=== PATIENT | female | born 1990 | race African-American/Black ===

== ENCOUNTER 2019-11-07 11:24 | Day surgery (SDC) | payer OTHER ==
[~2019-11-07 11:24] MED LIST: ACETAMINOPHEN 325 MG TABLET PO PRN; CEFAZOLIN 1 GM/D5W RTU 1 GM/50 ML RTUPB IV PRN; RINGERS SOLUTION,LACTATED 1,000 ML IV PRN
[2019-11-07] MEDS ORDERED: SUCCINYLCHOLINE CHLORIDE INJ 200 MG/10 ML VIAL ONE (11:44)
[2019-11-07] MEDS ORDERED: KETOROLAC TROMETHAMINE 60 MG/2 ML SDV ONE (11:44)
[2019-11-07] MEDS ORDERED: LIDOCAINE 2% INJ-PF (20 MG/ML) 2 ML AMPUL ONE (11:44)
[2019-11-07] MEDS ORDERED: NEOSTIGMINE METHYLSULFATE 10 MG/10 ML VIAL ONE (11:44)
[2019-11-07] MEDS ORDERED: CEFAZOLIN 1 GM/D5W RTU 1 GM/50 ML RTUPB IV ONE (12:07)
[2019-11-07 12:38] LABS: HEMATOCRIT 38.5 % (36.0-47.0); HEMOGLOBIN 12.7 g/dL (12.0-15.5); MEAN CORPUSCULAR HEMOGLOBIN 27.3 pg (27.0-33.4); MEAN CORPUSCULAR VOLUME 83 fl (80-97); PLATELET COUNT 313 10^3/uL (150-450); RED BLOOD COUNT 4.66 10^6/uL (3.72-5.28); WHITE BLOOD COUNT 5.5 10^3/uL (4.0-10.5)
[2019-11-07] MEDS ORDERED: FENTANYL CITRATE INJ/PF 100 MCG/2 ML AMPUL ONE (12:58)
[2019-11-07] MEDS ORDERED: MORPHINE SULFATE 10 MG/ML INJ ONE (12:58)
[2019-11-07] MEDS ORDERED: PROPOFOL INJ 200 MG/20 ML VIAL IV ONE (12:58)
[2019-11-07] MEDS ORDERED: MIDAZOLAM 2 MG/2 ML INJ ONE (12:58)
[2019-11-07] MEDS ORDERED: BUPIVACAINE HCL 0.25 % INJ/PF (2.5 MG/1 ML) 30 ML VIAL ONE (13:07)
[2019-11-07] MEDS ORDERED: BUPIVACAINE INJ/PF LIPOSOME/PF 266 MG/20 ML SDV ONE (13:25)
[2019-11-07] MEDS ORDERED: BUPIVACAINE INJ/PF LIPOSOME/PF 266 MG/20 ML SDV INJ ONE (13:34)
[2019-11-07] MEDS ORDERED: MEPERIDINE HCL/PF INJ 25 MG/1 ML DISP.SYRIN IV PRN (13:42)
[2019-11-07] MEDS ORDERED: PROMETHAZINE HCL INJ 25 MG/1 ML VIAL IV PRN (13:42)
[2019-11-07] MEDS ORDERED: MORPHINE SULFATE 10 MG/ML INJ IV PRN (13:42)
[2019-11-07] MEDS ORDERED: DIPHENHYDRAMINE HCL 50 MG/ML VIAL IV PRN (13:42)
[2019-11-07] MEDS ORDERED: FENTANYL CITRATE INJ/PF 100 MCG/2 ML AMPUL IV PRN (13:42)
--- NOTE | 2019-11-07 13:58 | Operative Report ---
Nonrecallable Operative Report DATE OF SURGERY: 11/07/19 PREOPERATIVE DIAGNOSIS: Hidradenitis right axilla POSTOPERATIVE DIAGNOSIS: Hidradenitis right axilla OPERATION: Excision of hidradenitis right axilla SURGEON: BRIA MANCIA ANESTHESIA: GA TISSUE REMOVED OR ALTERED: Right axillary skin COMPLICATIONS: None ESTIMATED BLOOD LOSS: 10 cc INTRAOPERATIVE FINDINGS: See dictation PROCEDURE: Patient was brought to the operating room awake alert stable condition placed in the operating table supine position induced under general anesthesia and intubated after appropriate timeout and site verification the procedure commenced. The right axilla was prepped and and draped in usual sterile [facility] ion. The right axillary hidradenitis was fairly well localized just above the axillary crease. The skin was marked with a skin marker a an elliptical incision was marked approximately 7 cm long by 2 cm wide and then accomplished with a 15 blade The dissection was then carried down through subcutaneous tissue into the axillary fatty tissue with the Bovie cautery. The glandular tissue and and deep fatty tissue were excised with Bovie cautery. Hemostasis was obtained with Bovie cautery. The subcutaneous tissue that was then reapproximated in 2 layers with interrupted 3-0 Vicryl suture. The skin was then reapproximated with interrupted 3-0 nylon suture. Sterile dressing was applied which completed the procedure. Sponge needle counts were correct x2 the patient was awakened in the operating extubated transferred recovery in stable condition no complications
--- NOTE | 2019-11-07 14:02 | Discharge Summary ---
Discharge Summary (SDC) - Discharge Final Diagnosis: Right axillary hidradenitis Date of Surgery: 11/07/19 Discharge Date: 11/07/19 Condition: Good Prescriptions: Oxycodone HCl/Acetaminophen [Percocet 7.5-325 mg Tablet] 1 each PO Q6HP PRN #15 tablet PRN Reason: Referrals: JASPER THOMAS MD [Primary Care Provider] - Discharge Activity: Activity As Tolerated, No Lifting Over 10 Pounds Report the Following to Your Physician Immediately: Fever over 101 Degrees, Unusual Bleeding - Patient needs an appointment with me in 5 to 7 days
[2019-11-07] MEDS ORDERED: OXYCODONE-ACETAMINOPHEN 5-325 MG TABLET PO PRN (15:18)
[2019-11-07] MEDS ORDERED: OXYCODONE HCL IR 5 MG TABLET PO PRN (15:20)
[2019-11-07 17:05] VITALS: BP 93/70
== END 2019-11-07 16:30 | disposition home or self-care (01) ==
LOC: OROUT 11:24
PROVIDERS: ATTEND Surgery
DX: L73.2 Hidradenitis suppurativa (principal)
CPT/HCPCS: 36415; 84703; 85027; 00400; 11450; J2250; J0690; J1885; J3010; J2710; J0330; J2704; C9290; J3490; 400; J2270